=== PATIENT | female | born 1965 | race Caucasian/White ===

== ENCOUNTER 2017-11-03 04:53 | Day surgery (SDC) | payer BC ==
[2017-10-31 12:18] VITALS: BMI 23.7
[2017-11-03] MEDS ORDERED: ACETAMINOPHEN 1000 MG/100 ML VIAL (NON FORMULARY) IVPB PRN (11:57)
[2017-11-03] MEDS ORDERED: ACETAMINOPHEN 1000 MG/100 ML VIAL (NON FORMULARY) IVPB ONE (11:57)
[2017-11-03] MEDS ORDERED: PROMETHAZINE HCL 25 MG/1 ML VIAL IVPUSH PRN (11:57)
[2017-11-03] MEDS ORDERED: ONDANSETRON 4 MG/2 ML VIAL IVPUSH PRN (11:57)
[2017-11-03] MEDS ORDERED: LACTATED RINGERS SOLUTION 1,000 ML IV SCH (12:00)
[2017-11-03 14:07] VITALS: BP 114/75; PULSE 60
[2017-11-03 14:22] VITALS: TEMP 98.5
--- NOTE | 2017-11-03 16:36 | HP ---
Past Medical History - Primary Care Physician PCP:: Logan Madera - Admission Chief Complaint: 52yo female with PMB and uterine polyp admitted for hysteroscoic polypectomy and D&C History of Present Illness: PMB, EMB shpwed uterine polyp History Source: Patient, Medical Record Limitations to Obtaining History: No Limitations - Past Medical History COMPUTING CONSULTANT: No: Alzheimer's, CVA, Dementia, Migraine, Multiple Sclerosis, Peripheral Neuropathy, Parkinson's, Seizure, Syncope, TIA, Vertigo, Other Cardiovascular: No: AFIB, Aneurysm, Aortic Insufficiency, Aortic Stenosis, CAD, CHF, Deep Vein Thrombosis, HTN, Hyperlipdemia, NC, Mitral Insufficiency, Mitral Stenosis, Murmur, Pulmonary Hypertension, Other Pulmonary: Yes: Asthma Gastrointestinal: No: Ascites, Cancer, Constipation, Crohn's Disease, Diverticulitis, Diverticulosis, Esophageal Varices, Gastritis, GERD, GI Bleed, Hemorrhoids, Hiatal Hernia, Inflamatory Bowel Disease, Irritable Bowel Disease, Pancreatitis, Peptic Ulcer Disease, Ulcerative Colitis, Other Hepatobiliary: No: Cirrhosis, Cholelithiasis, Cholecystitis, Choledocholithiasis , Hepatitis A, Hepatitis B, Hepatitis C, Other Renal/: No: Renal Failure, Renal Inusuff, BPH, Cancer, Hematuria, Hemodialysis , Neurogenic Bladder, Renal Calculi, UTI, Other Reproductive: No: Ectopic , Endometriosis, Fibroids, PID, Polycystic Ovary Syndrome, Postmenopausal, Other ...Para: 0 Heme/Onc: No: Anemia, B12 Deficiency, Bleeding Disorder, Cancer, Current Chemotherapy, Current Radiation Therapy, Hemochromatosis, Hypercoaguable State, Myeloproliferative Synd, Sickle Cell Disease, Sickle Cell Trait, Thrombocytopenia, Other Infectious Disease: No: AIDS, C-Diff, Herpes Zoster, HIV, MRSA, STD's, Tuberculosis, VREF, Other Psych: No: Addictions, Anxiety, Bipolar, Depression, Panic, Psychosis, Schizophrenia, Other Musculoskeletal: No: Bursitis, Chronic low back pain, Hemiparesis, Hemiplegia, Osteoarthritis, Paraplegia, Other Rheumatology: No: Fibromyalgia, Gout, Lupus, Rheumatoid Arthritis, Sarcoidosis, Vasculitis, Other ENT: No: Allergic Rhinitis, Sinusitis, Other Endocrine: No: H[place]'s Disease, [place]'s Disease, Diabetes Insipidus, Diabetes Mellitus, Hyperparathyroidism, Hyperthyroidism, Hypothyroidism, Osteopenia, SIADH, Other Dermatology: No: Basal Cell, Cellulitis, Eczema, Melanoma, Psoriasis, Squamous Cell, Other - Past Surgical History Past Surgical History: Yes: None Hx Myomectomy: No Hx Transabdominal Cerclage: No - Smoking History Smoking history: Current some day smoker Have you smoked in the past 12 months: No If you are a former smoker, when did you quit?: [id number] - Alcohol/Substance Use Hx Alcohol Use: Yes (social) History of Substance Use: reports: None - Social History Usual Living Arrangement: Yes: With Spouse ADL: Independent History of Recent Travel: No Home Medications - Allergies Allergies/Adverse Reactions: Allergies Allergy/AdvReac Type Severity Reaction Status Date / Time Fish Containing Products Allergy Intermediate Verified 10/31/17 12:20 ? Morphine AdvReac Severe Vomiting Uncoded 10/31/17 12:27 - Home Medications Home Medications: Ambulatory Orders Fluticasone/Salmeterol [Advair Hfa 115-21 Mcg Inhaler] 1 inh PO BID 10/31/17 Metronidazole [Flagyl -] 500 mg PO BID #14 tablet 11/03/17 Family Disease History - Family Disease History Family Disease History: Diabetes: Mother, Heart Disease: Father Review of Systems - Review of Systems Constitutional: reports: No Symptoms Eyes: reports: No Symptoms HENT: reports: No Symptoms Neck: reports: No Symptoms Cardiovascular: reports: No Symptoms Respiratory: reports: No Symptoms Gastrointestinal: reports: No Symptoms Genitourinary: reports: No Symptoms Breasts: reports: No Symptoms Reported Musculoskeletal: reports: No Symptoms Integumentary: reports: No Symptoms Neurological: reports: No Symptoms Endocrine: reports: No Symptoms Hematology/Lymphatic: reports: No Symptoms Psychiatric: reports: No Symptoms Pain Intensity: 0 Physical Exam-TOOL AND DIE SUPERVISOR Vital Signs: Vital Signs Temperature 98.5 F 11/03/17 12:55 Pulse Rate 60 11/03/17 14:23 Respiratory Rate 20 11/03/17 14:23 Blood Pressure 114/75 11/03/17 14:23 O2 Sat by Pulse Oximetry (%) 100 11/03/17 13:00 Constitutional: Yes: Well Nourished, No Distress, Calm Eyes: Yes: WNL, Conjunctiva Clear HENT: Yes: WNL, Atraumatic, Normocephalic Neck: Yes: WNL, Supple, Trachea Midline Cardiovascular: Yes: WNL, Regular Rate and Rhythm Respiratory: Yes: WNL, Regular, CTA Bilaterally Gastrointestinal: Yes: WNL, Normal Bowel Sounds, Soft ...Rectal Exam: Yes: Deferred Renal/: Yes: WNL Pelvis: Yes: WNL External Genitalia: Yes: Normal Internal Exam Deferred: No Vaginal Exam: Yes: Normal Cervix: Yes: Normal Uterus: Yes: Normal Adnexa: Normal: Left, Right Musculoskeletal: Yes: WNL Extremities: Yes: WNL Edema: No Integumentary: Yes: WNL Neurological: Yes: WNL, Alert, Oriented ...Motor Strength: WNL Psychiatric: Yes: WNL, Alert, Oriented Imaging - Results Ultrasound: Report Reviewed Assessment/Plan 52yo female with PMB and uterine polyp admitted for hysteroscoic polypectomy and D&C. We had discussed the risks, benefits, alternatives of surgery at length including but not limited to infection, bleeding, scarring, perforation, amenorrhea, infertility, hysterectomy, etc. The pt verbalized understanding and requested to proceed with surgery. I emphasized that all surgeries have risks and no guarantees can be provided
--- NOTE | 2017-11-06 11:21 | OP ---
Operative Note - Note: Operative Date: 11/03/17 Pre-Operative Diagnosis: PMB. Endometrial polyp Operation: Hysteroscopy, D&C, polypectomy Findings: Large endometrial polyp Post-Operative Diagnosis: Same as Pre-op Surgeon: Logan Madera Anesthesiologist/ENROBING MACHINE CORDER: Kirill Cox Anesthesia: General Specimens Removed: Uterine polyp, endometrial curettings Estimated Blood Loss (mls): 5 Blood Volume Replaced (mls): 0 Fluid Volume Replaced (mls): 600 Operative Report Dictated: Yes
--- NOTE | 2017-11-06 16:41 | PATH ---
Surgical Pathology Report Patient Name: ZULAY TAVERAS [facility]. Rec. #: [id number] /Age/Gender: 1965 (Age: 52) / F Account: [id number] Location: [facility] SURGICAL Taken: 11/03/2017 Received: 11/03/2017 Reported: 11/06/2017 Physicians: Logan Madera M.D. Specimen(s) Received A: POLYP ENDOMETRIAL B: ENDOMETRIAL CURETTINGS Clinical History Polyp of corpus uteri Final Diagnosis A. ENDOMETRIUM, POLYP, DILATATION AND CURETTAGE: FRAGMENTS OF ENDOMETRIAL POLYP. B. ENDOMETRIAL CURETTINGS, DILATATION AND CURETTAGE: FRAGMENTS OF ENDOMETRIAL POLYP AND BENIGN CERVICAL TISSUE. Electronically Signed Nancy Garcia M.D. Gross Description A. Received in formalin labeled "endometrial polyp," is a 1.4 x 1.1 x 0.2 cm aggregate of reynolds soft tissue fragments. The formalin is filtered and the specimen is entirely submitted in one cassette. B. Received in formalin labeled "endometrial curettage" is a 2.4 x 1.8 x 0.3 cm aggregate of reynolds-brown soft tissue fragments. The formalin is filtered and the specimen is entirely submitted in one cassette. /11/03/201711/03/2017
--- NOTE | 2017-11-06 21:13 | OP ---
DATE OF OPERATION: 11/03/2017 PREOPERATIVE DIAGNOSES: Postmenopausal bleeding, endometrial polyp. POSTOPERATIVE DIAGNOSES: Postmenopausal bleeding, endometrial polyp. PROCEDURE: Hysteroscopy, dilatation and curettage, polypectomy. SURGEON: Logan Madera MD ANESTHESIOLOGIST: Chong Cox MD PATHOLOGY: Endometrial polyp, endometrial curettings. INTRAVENOUS FLUIDS: 600 mL ESTIMATED BLOOD LOSS: 5 mL COMPLICATIONS: None. FINDINGS: Examination under anesthesia revealed a slightly enlarged uterus with no pelvic or adnexal masses. Hysteroscopy revealed a large endometrial polyp with no other lesions. DESCRIPTION OF PROCEDURE: The patient was met preoperatively. Risks, benefits, and alternatives of surgery were discussed in details. All questions were answered. The patient was brought to the OR with the IV running. She was placed on the surgical table in the supine position. The general anesthesia was achieved without difficulty. The patient was then placed in a dorsal lithotomy position using adjustable Claude stirrups. She was prepped and draped in the usual sterile fashion. A timeout procedure was conducted as per standard protocol. A sterile speculum was introduced inside the patient's vagina with good visualization of the cervix. The cervix was grasped with a single-tooth tenaculum. The cervical os was dilated to accommodate the size 21 Lutz dilator. A hysteroscope was then placed into the cervical os without complications. Hysteroscopy revealed a large endometrial polyp protruding from the posterior uterine wall. A TruClear hysteroscopic device was used to completely excise the polyp without complications. Once this was completed, the hysteroscope was removed, and uterine curettage was performed. All tissue was submitted to Pathology once the uterine curettage was completed. Hysteroscopy was performed once again, and no other lesions were noted. Good hemostasis was confirmed. All of the instruments were removed. Sponge, lap, instrument counts were correct. Good hemostasis was once again confirmed. The patient was returned to supine position. She was transferred to recovery room in stable condition and awake. Erickson MATA/[id number]
== END 2017-11-03 14:25 | disposition home or self-care (01) ==
LOC: JASU-SURG 04:53
PROVIDERS: ATTEND Obstetrics & Gynecology
PROC: 0UB98ZX Excision of Uterus, Via Natural or Artificial Opening Endoscopic, Diagnostic (ICD-10-PCS; principal; 2017-11-03 10:00)
PROC: 0UDB8ZX Extraction of Endometrium, Via Natural or Artificial Opening Endoscopic, Diagnostic (ICD-10-PCS; 2017-11-03 10:00)
DX: N95.0 Postmenopausal bleeding (principal); N84.0 Polyp of corpus uteri
CPT/HCPCS: 36415; 84702; 86850; 86900; 86901; 88305-TC; 94760

== ENCOUNTER 2019-07-01 08:05 | Day surgery (SDC) | payer BC ==
[2019-06-28 10:55] VITALS: BMI 25.1
[2019-07-01] MEDS ORDERED: ROPIVACAINE HCL 0.5% 30ML VIAL ONE (09:10)
[2019-07-01] MEDS ORDERED: MIDAZOLAM HCL 2 MG/2 ML SINGLE DOSE VIAL ONE ×2 (09:12)
--- NOTE | 2019-07-01 10:14 | HP ---
History & Physical Update - History History: No Change (Postmenopausal bleeding, adnexal mass. Pt is admitted for TLH, BSO, cystoscopy) - Physical Physical: No Change - Assessment Assessment: No Change - Plan Plan: No Change
[2019-07-01] MEDS ORDERED: fentaNYL CITRATE 250 MCG/5 ML VIAL ONE (10:23)
[2019-07-01] MEDS ORDERED: ROCURONIUM BROMIDE 50 MG/5 ML SYRINGE ONE ×2 (10:23→11:21)
[2019-07-01] MEDS ORDERED: LIDOCAINE HCL/PF 2% SDV 5ML VIAL ONE (10:23)
[2019-07-01] MEDS ORDERED: PROPOFOL 20 ML ONE (10:23)
[2019-07-01] MEDS ORDERED: ceFAZolin SODIUM 1 GM VIAL ONE (10:38)
[2019-07-01] MEDS ORDERED: ceFAZolin SODIUM 1 GM VIAL IVPB ONE (10:40)
[2019-07-01] MEDS ORDERED: GLYCOPYRROLATE 0.2 MG/1 ML VIAL ONE ×3 (10:47→13:40)
[2019-07-01] MEDS ORDERED: DEXAMETHASONE SOD PHOSPHATE 4 MG/1 ML VIAL ONE (10:56)
[2019-07-01] MEDS ORDERED: CEFAZOLIN 2 GM/D5W 2 GM/50 ML ML IVPB ONE (11:00)
[2019-07-01] MEDS ORDERED: NEOSTIGMINE METHYLSULFATE 0.5 MG/ML - 10 ML MDV ONE (12:20)
[2019-07-01] MEDS ORDERED: oxyCODONE HCL 5 MG TABLET PO PRN (12:44)
[2019-07-01] MEDS ORDERED: IBUPROFEN 800 MG/8 ML IJ IVPB PRN (12:44)
[2019-07-01] MEDS ORDERED: ONDANSETRON 4 MG/2 ML VIAL IVPUSH PRN (12:44)
[2019-07-01] MEDS ORDERED: ACETAMINOPHEN 1000 MG/100 ML VIAL (NON FORMULARY) IVPB ONE (12:45)
[2019-07-01] MEDS ORDERED: ACETAMINOPHEN 1000 MG/100 ML VIAL (NON FORMULARY) IVPB PRN (12:45)
[2019-07-01] MEDS ORDERED: LACTATED RINGERS SOLUTION 1,000 ML IV SCH (12:45)
--- NOTE | 2019-07-01 13:19 | OP ---
Operative Note - Note: Operative Date: 07/01/19 Pre-Operative Diagnosis: Postmenopausal bleeding. Left adnexal mass Operation: Laparascopy, lysis of extensive and thick adhesions, left ovarian cystectomy, cystoscopy Findings: Laparoscopy showed multiple dense adhesions of omentum to uterus and posterior cul-de-sac. Severe pelvic endometriosis. Posterior and anterior cul-de-sac are obliterated due to scarring. Sigmoid colon adherent to the posterior side of the uterus and filling the cul-de-sac. The bladder is draped over the uterine fundus anteriorly. Both adnexae are covered by scarring and peritonealized. Neither fallopian tube nor round ligaments could be seen. The left adnexa was dissected and containes a left ovary with a possible left adnexal mass/complex, along with an adjacent simple serous cyst. The serous cyst was drained during dissection and noted to contain clear straw colored fluid. The posterior cul-de- sac was dissected. The omentum was dissected. The bowel was freed from the uterus except for some adhesions of bowel to the right adnexa. Left retroperitoneal dissection was done. The left ureter was dissected from the IP ligament and to the broad ligament. However the ureter was very scarred/ adherent to the left adnexal mass/ovary complex and could not be dissected safely. A consult was requested intraopearatively but was unavailable. At that point hemostasis was achieved and cystoscopy was done to assure intact ureters and function. Cystoscopy showed normal findings and both ureters were working normally. The decision was made to terminate the case in order to avoid the risk of ureteral and bowel injury Post-Operative Diagnosis: Same as Pre-op Surgeon: Logan Madera Instrumentation Fitter: Karen Beck Anesthesiologist/SOFTWARE QUALITY AUTOMATION ENGINEER: Lydia Manrique Anesthesia: General Estimated Blood Loss (mls): 10 Drains & Tubes with Location: [facility] cath Drains, Volume Out (mls): 100 Blood Volume Replaced (mls): 0 Fluid Volume Replaced (mls): 1,000 Operative Report Dictated: Yes
[2019-07-01 14:44] VITALS: TEMP 98.3
[2019-07-01 17:57] VITALS: BP 139/61; PULSE 57
[2019-07-02] MEDS ORDERED: ENOXAPARIN NA (PORCINE) 40 MG/0.4 ML DISP.SYRIN SQ SCH (10:00)
--- NOTE | 2019-07-02 11:12 | EKG ---
Test Reason : Blood Pressure : / mmHG Vent. Rate : 059 BPM Atrial Rate : 059 BPM P-R Int : 148 ms QRS Dur : 078 ms QT Int : 448 ms P-R-T Axes : 065 007 051 degrees QTc Int : 443 ms SINUS BRADYCARDIA WITH PREMATURE ATRIAL COMPLEXES MINIMAL VOLTAGE CRITERIA FOR LVH, MAY BE NORMAL VARIANT NONSPECIFIC T WAVE ABNORMALITY ABNORMAL ECG NO PREVIOUS ECGS AVAILABLE Confirmed by Deng Borden MD ([id number]) on 07/02/2019 11:12:10 AM Referred By: Confirmed By:Deng Borden MD
--- NOTE | 2019-07-03 17:10 | PATH ---
Cytology Non-Gynecological Report Patient Name: ZULAY TAVERAS [facility]. Rec. #: [id number] /Age/Gender: 1965 (Age: 54) / F Account: [id number] Location: AMBULATORY SURG Taken: 07/01/2019 Received: 07/02/2019 Reported: 07/03/2019 Physicians: Logan Madera M.D. Specimen(s) Received PELVIC WASHINGS Clinical History Postmenopausal bleeding, left adnexal mass Final Diagnosis PELVIC WASHINGS FOR CYTOLOGY: SATISFACTORY FOR EVALUATION. NEGATIVE FOR MALIGNANT CELLS. REACTIVE MESOTHELIAL CELLS, MACROPHAGES, AND SMALL LYMPHOCYTES PRESENT. Electronically Signed Chandler Marinelli M.D. Gross Description Approximately 50cc of bloody fluid received fresh. One cytofunnel and one cellblock prepared.
== END 2019-07-01 18:09 | disposition home or self-care (01) ==
LOC: JASU-SURG 08:05 → JASUSAT 08:05
PROVIDERS: ATTEND Obstetrics & Gynecology
PROC: 0UB98ZX Excision of Uterus, Via Natural or Artificial Opening Endoscopic, Diagnostic (ICD-10-PCS; principal; 2019-07-01 10:00)
PROC: 0UDB7ZX Extraction of Endometrium, Via Natural or Artificial Opening, Diagnostic (ICD-10-PCS; 2019-07-01 10:00)
DX: N95.0 Postmenopausal bleeding (principal); N84.0 Polyp of corpus uteri
CPT/HCPCS: 36415; 84703; 86850; 86900; 86901; 88108; 88305-TC; 93005; 93010; 94760; J0131